=== PATIENT | female | born 1990 | race Caucasian/White ===

== ENCOUNTER 2022-07-17 10:03 | Emergency (ER) | payer BC, SELFPAY ==
[2022-07-17] VITALS (10 sets, daily range): BP systolic 114–125; BP diastolic 76–81; PULSE 102–119; RESP 18; TEMP 37.1; O2SAT 99–100; BMI 19.6
--- NOTE | 2022-07-17 10:35 | ED_ITS ---
HPI - General Adult General Chief complaint: Arrhythmia/Palpitations Stated complaint: Heart racing, nausea Time Seen by Provider: 07/17/22 10:19 History of Present Illness HPI narrative: Patient is a 31 white female has had some palpitations in the past. She was given metoprolol but decided not to take it due to its side effects potential. She has had some anxiety in the past tobacco abuse and asthma she is feeling a little bit dizzy today and lightheaded and anxious. She has had no breathing difficulty of significance she has to move her report to me no chest pain no leg swelling or edema. She works at a [employer] in [place]. She has no other specific complaints, low no leg swelling, no edema no significant headache no visual problem. She did take 1 dose of the metoprolol and felt anxious and stop that. She is here with her family Related Data Home Medications Medication Instructions Recorded Confirmed medroxyprogesterone 150 mg/mL 150 mg IM [id number] 07/01/22 07/17/22 intramuscular suspension (Depo-Provera) Previous Rx's Medication Instructions Recorded fluticasone 250 mcg-salmeterol 50 1 inh inhalation BID #60 ea 07/01/22 mcg/dose blistr powdr for inhalation (Advair Diskus) Allergies Allergy/AdvReac Type Severity Reaction Status Date / Time No Known Allergies Allergy Unknown Verified 07/17/22 10:52 Review of Systems Status of ROS: Reports: 6 or more systems reviewed and unremarkable except as noted in History and below Narrative: No exposure to toxins or chemicals PFSH PFS Surgical History History of cholecystectomy ?Z90.49 - Acquired absence of other specified parts of digestive tract (ICD- 10) Social History Smoking Status: Current every day smoker What tobacco products do you use: cigarettes Smoking packs per day: 0.5 Smoking cigarettes per day: 10.0 Do you use any of these nicotine containing products: None Second hand tobacco smoke exposure: No How often do you have a drink containing alcohol: never AUDIT-C Alcohol total score: 0 Non-prescribed substance use: denies use Exam Narrative: Exam Narrative: Objective: Patient comes in with the pulse of 119 and regular sinus rhythm on telemetry Vital signs otherwise unremarkable HEENT is unremarkable no facial asymmetry, mouth is clear well hydrated , neck is supple, chest is clear no rales or wheezing, heart rhythm regular no murmur . Abdomen benign Extremities are no edema neurologic nonfocal Good peripheral perfusion noted Const: Vital Signs, click to edit/add: Vital Signs - 24 hr 07/17/22 10:12 07/17/22 10:24 07/17/22 10:24 Temperature 98.8 F Pulse Rate 112 H 112 H Pulse Rate [Pulse Oximeter] 119 H Respiratory Rate 18 Blood Pressure 121/81 121/81 Blood Pressure [Ri ght Upper Arm] 120/77 Pulse Oximetry 100 100 100 Oxygen Delivery Me thod Non Rebreather Mas k 07/17/22 10:25 07/17/22 10:30 07/17/22 10:31 Temperature Pulse Rate 108 H 113 H 110 H Pulse Rate [Pulse Oximeter] Respiratory Rate Blood Pressure 125/76 Blood Pressure [Ri ght Upper Arm] Pulse Oximetry 100 99 100 Oxygen Delivery Me thod 07/17/22 10:45 07/17/22 11:00 07/17/22 11:01 Temperature Pulse Rate 102 H 107 H 116 H Pulse Rate [Pulse Oximeter] Respiratory Rate Blood Pressure 114/76 Blood Pressure [Ri ght Upper Arm] Pulse Oximetry 100 100 99 Oxygen Delivery Me thod 07/17/22 11:15 07/17/22 11:30 Temperature Pulse Rate 102 H 107 H Pulse Rate [Pulse Oximeter] Respiratory Rate Blood Pressure Blood Pressure [Ri ght Upper Arm] Pulse Oximetry 99 99 Oxygen Delivery Me thod Course Vital Signs Vital signs: Initial Vital Signs Temperature 98.8 F 07/17/22 10:12 Temperature Source Temporal Artery Scan 07/17/22 10:12 Pulse Rate 119 H 07/17/22 10:12 Respiratory Rate 18 07/17/22 10:12 Blood Pressure 120/77 07/17/22 10:12 Blood Pressure Mean 91 07/17/22 10:12 Blood Pressure Position Sitting 07/17/22 10:12 Pulse Oximetry 100 07/17/22 10:12 Oxygen Delivery Method Non Rebreather Mask 07/17/22 10:12 Vital Signs Temperature 98.8 F 07/17/22 10:12 Pulse Rate 119 H 07/17/22 10:12 Respiratory Rate 18 07/17/22 10:12 Blood Pressure 120/77 07/17/22 10:12 Pulse Oximetry 100 07/17/22 10:12 Oxygen Delivery Method Non Rebreather Mask 07/17/22 10:12 Temperature 98.8 F 07/17/22 10:12 Pulse Rate 107 H 07/17/22 11:30 Respiratory Rate 18 07/17/22 10:12 Blood Pressure 114/76 07/17/22 11:01 Pulse Oximetry 99 07/17/22 11:30 Oxygen Delivery Method Non Rebreather Mask 07/17/22 10:12 Medical Decision Making MDM Narrative Medical decision making narrative: Patient is a 31-year-old female with anxiety and asthma, she presents with some lightheadedness, anxiety, palpitations today. She appears to be in a sinus rhythm. This is noted on telemetry. I think would be morgan to check formal EKG, TSH, CRP, CBC D-dimer Chem profile and point of care troponin. Disposition pending findings above if these are all reassuring and negative, I think we can recommend rest light activity fluids and follow up with primary care to discuss further care in the next few days. Return to ED sooner problems or concerns. She is able to take oral fluids will give her several glasses of water to drink in case she has mildly dry. Addendum: The patient feels little better, her laboratory studies show a negative CRP negative , troponin normal , white count normal hemoglobin, negative D-dimer, ER profile is unremarkable, CRP is less than 0.5. This point I would recommend today off, follow-up with primary care in the next 2-3 days, light activity fluids, return as needed. TSH is still pending and we can follow-up that is indicated. The patient is interested in considering some antianxiety medicines that she seems to be battling this pretty regularly. She shows good insight into her situation. She would like to talk to Dr. Garcia about this I think that is excellent. Lab Data Labs: Lab Results 07/17/22 Range/Units 10:40 WBC 4.94 (4.50-11.00) K/uL RBC 5.06 (4.00-5.20) m/uL Hgb 14.5 (12.0-16.0) gm/dL Hct 42.6 (33.0-51.0) % MCV 84 (80-100) fL MCH 29 (26-34) pg MCHC 34 (32-36) gm/dL RDW Coeff of Cullen 12.6 (11.5-15.5) % Plt Count 216 (140-440) K/uL Neut % (Auto) 60.3 (42.0-72.0) % Lymph % (Auto) 30.0 (20-44) % [place] % (Auto) 7.7 (0.0-11.0) % Eos % (Auto) 1.4 (0.0-7.0) % Baso % (Auto) 0.4 (0.0-3.0) % Neut # (Auto) 2.98 (1.7-7.0) K/uL Lymph # (Auto) 1.48 (0.90-2.90) K/uL [place] # (Auto) 0.40 (0.00-0.90) K/UL Eos # (Auto) 0.07 (0.00-0.50) K/uL Baso # (Auto) 0.02 (0.00-0.30) K/uL D-Dimer Quant (PE/DVT) < 0.27 (0.00-0.50) ug/ml Sodium 138 (135-149) mmol/L Potassium 4.1 (3.6-5.1) mmol/L Chloride 109 (96-114) mmol/L Carbon Dioxide 23 (20-32) mmol/L BUN 11 (5-24) mg/dL Creatinine 0.9 (0.5-1.5) mg/dL Estimated Creat Clear 72.58 Estimated GFR 87 ml/min Glucose 108 (60-115) mg/dL Calcium 9.4 (8.4-10.6) mg/dL C-Reactive Protein < 0.5 L (0.5-1.0) mg/dL TSH 1.380 (0.270-4.20) uIU/mL POC Troponin I 0.00 L (0.01-0.04) ng/ml Discharge Plan Discharge Clinical Impression: Heart palpitations Patient Disposition: Home w/ Parent or Adult Condition: Improved Additional Instructions: Rest light activity, off work today, return to primary care in the next 2-3 days, sooner return to ED if problems or concerns Activity Level: Light activity Discharge Diet: Regular Prescriptions: No Action medroxyprogesterone [Depo-Provera] 150 mg/mL suspension 150 mg IM [id number] fluticasone propion-salmeterol [Advair Diskus] 250-50 mcg/dose blister with device 1 inh inhalation BID Qty: 60 11RF Follow Up/Referrals: Carroll Sebastian MD [Primary Care Provider] - Stand Alone Forms: [employer] Info Instructions
[2022-07-17 10:48] LABS: Basophils Absolute Auto 0.02 K/uL (0.00-0.30); Basophils Percent Auto 0.4 % (0.0-3.0); Eosinophils Absolute Auto 0.07 K/uL (0.00-0.50); Eosinophils Percent Auto 1.4 % (0.0-7.0); Hematocrit 42.6 % (33.0-51.0); Hemoglobin* 14.5 gm/dL (12.0-16.0); Immature Granulocytes Abs Auto 0.01 K/uL (0.00-0.30); Immature Granulocytes Pct Auto 0.2 %; Lymphocytes Absolute Auto 1.48 K/uL (0.90-2.90); Mean Corpuscular HGB Conc 34 gm/dL (32-36); Mean Corpuscular Hemoglobin 29 pg (26-34); Mean Corpuscular Volume 84 fL (80-100); Monocytes Percent Auto 7.7 % (0.0-11.0); Neutrophils Absolute Auto 2.98 K/uL (1.7-7.0); Neutrophils Percent Auto 60.3 % (42.0-72.0); Platelet Count* 216 K/uL (140-440); RDW Coefficient of Variation % 12.6 % (11.5-15.5); Red Blood Count 5.06 m/uL (4.00-5.20); White Blood Count* 4.94 K/uL (4.50-11.00)
[2022-07-17 10:49] LABS: Slide Review Reflex No
[2022-07-17 10:58] LABS: Chloride* 109 mmol/L (96-114); Sodium* 138 mmol/L (135-149)
[2022-07-17 10:59] LABS: Potassium* 4.1 mmol/L (3.6-5.1)
[2022-07-17] MEDS: LORazepam 1 MG TABLET PO (10:59)
[2022-07-17 11:01] LABS: Creatinine* 0.9 mg/dL (0.5-1.5); Est. Creatinine Clearance* 72.58; Estimated Glomerular Filt Rate 87 ml/min
[2022-07-17 11:02] LABS: Blood Urea Nitrogen* 11 mg/dL (5-24); Calcium* 9.4 mg/dL (8.4-10.6); Carbon Dioxide* 23 mmol/L (20-32); Glucose* 108 mg/dL (60-115)
[2022-07-17 11:05] LABS: D Dimer Quantitative* < 0.27 ug/ml (0.00-0.50)
[2022-07-17 11:06] LABS: C Reactive Protein* < 0.5 mg/dL (0.5-1.0)
== END 2022-07-17 11:35 | disposition home or self-care (01) ==
LOC: ED 11:18
PROVIDERS: Emergency Provider Family Medicine; PCP Family Medicine
DX: R00.2 Palpitations (principal)
CPT/HCPCS: 36415; 80048; 84443; 84484; 85025; 85379; 86140; 93005; 99284; A9270

== ENCOUNTER 2024-11-03 23:18 | Emergency (ER) | payer OTHER, SELFPAY ==
[2024-11-03 23:22] VITALS: BP 133/80; PULSE 95; RESP 18; TEMP 36.7; O2SAT 99; BMI 22.3
--- NOTE | 2024-11-04 00:22 | ED.GENADULT ---
HPI - General Adult General Chief complaint: Animal Bite Stated complaint: cat bite Time Seen by Provider: 11/04/24 00:01 Source: patient Mode of arrival: ambulatory Limitations: no limitations History of Present Illness HPI narrative: 34-year-old female presents the emergency department 7 hours after she was bit by her mother's cat on her right hand. The cat has been vaccinated in the past been may not be fully up-to-date. Does not have any observable obvious signs of rabies. The CT does seem to be an indoor/outdoor cat as she reports that it has been exposed to fleas and she was working to remove those. The cat bit her while she was attempting to care for it, main impact to her right hand along the MCP 2nd joint/thenar eminence area. She has been noticing increased swelling and tenderness for the past couple of hours. Did try taking some ibuprofen which did help a little bit. No fevers. She does not appreciate any redness but I do on exam. No prior history of surgery to this area. She is not immunocompromised, does use tobacco but does not have diabetes. She did wash out the wound very well after the bite. No history of antibiotic allergies are antibiotic resistant infections. She states that otherwise long-term health is good. Home medications are sertraline and Depo-Provera. She does have intermittent asthma which she will use Advair for as well. ROS is notable for the hand symptoms only, otherwise denies other skin, musculoskeletal, hematological, generalized concerns. Related Data Home Medications ?Medication ?Instructions ?Recorded ?Confirmed medroxyprogesterone 150 mg/mL 150 mg IM [id number] 07/01/22 11/03/24 intramuscular suspension (Depo-Provera) sertraline 50 mg tablet 50 mg PO DAILY 11/03/24 11/03/24 Previous Rx's ?Medication ?Instructions ?Recorded fluticasone 250 mcg-salmeterol 50 1 inh inhalation BID #60 ea 08/13/23 mcg/dose blistr powdr for inhalation (Advair Diskus) amoxicillin 875 mg-potassium 1 tab PO BID #19 tabs 11/04/24 clavulanate 125 mg tablet Allergies Allergy/AdvReac Type Severity Reaction Status Date / Time No Known Allergies Allergy Unknown Verified 11/03/24 23:24 PFSH PFS Surgical History History of cholecystectomy ?Z90.49 - Acquired absence of other specified parts of digestive tract (ICD-10) Social History Smoking Status: Current every day smoker What tobacco products do you use: cigarettes Smoking packs per day: 0.5 Smoking cigarettes per day: 10.0 Do you use any of these nicotine containing products: None Second hand tobacco smoke exposure: Yes How often do you have a drink containing alcohol: never AUDIT-C Alcohol total score: 0 Non-prescribed substance use: denies use Exam Const: Vital Signs, click to edit/add: Vital Signs - 24 hr 11/03/24 23:22 Temperature 98.0 F Pulse Rate [Right Pulse Oximeter] 95 Respiratory Rate 18 Blood Pressure [Ri ght Upper Arm] 133/80 Pulse Oximetry 99 Oxygen Delivery Me thod Room Air Documenting provider has reviewed patient's vital signs: yes Common normals: no apparent distress General appearance: cooperative and well kempt HENMT: Common normals: normocephalic Head and scalp: normocephalic Face and sinus: normal facial exam Eye: General eye: normal appearance of both eyes Neck & C-Spine: General: normal visual inspection Resp: Common normals: normal respiratory effort and clear to auscultation bilaterally Effort & inspection: able to speak in complete sentences Auscultation: clear to auscultation bilaterally Cardio: Common normals: regular rate, regular rhythm, S1 normal heart sound, S2 normal heart sound and no murmurs Rate: regular rate Rhythm: regular rhythm Heart sounds: S1 normal and S2 normal Other: Normal radial pulses bilaterally, normal capillary refill of all fingers Extremity: Other: Right hand and wrist have normal range of motion. Area in question is 2nd MCP joint area, slightly proximal for there is a moderate amount of swelling and 2 very small puncture points, nonbleeding that are consistent with her reported injury. There is a mild redness on the palmar aspect. She has normal tendon and nerve function in all fingers of the right hand. Normal capillary refill and sensation. Opposite left hand appears grossly normal. Psych: Appearance: well kempt Attitude: engaged Activity/motor behavior: appropriate eye contact Insight: insight good Judgement: judgment good Skin: Narrative: No other areas of injury besides right hand. Course Course ED Course: 34-year-old female with cat bite 7 hours ago showing signs of swelling. CT can be observed for any signs symptoms of rabies which does not seem to be exhibiting. I do not recommend that she start the rabies vaccine series. Tdap is out of date, recommend that we update her tetanus shot today, she was agreeable to this. We spent most for time discussing the injury to the hand. I am noticing signs of induration and swelling which are concerning for early infection. Counseled patient that unfortunately these infections can be quite serious and can be difficult to treat. Will start Augmentin 875 mg p.o. b.i.d. times 10 days, 1st dose right away here in the emergency room. Counseled patient that she needs to watch this closely, she will take pictures of the injury on her phone for comparison. Things may continue to worsen and swell for the next few hours after starting antibiotics but there should be the start of some improvement by the 24 hour esperanza. If after 24 hours we are not starting to notice any improvement, I would recommend re-evaluation in the emergency room, as we should consider IV antibiotics and hospital admission. She does smoke but that would be her only real risk factor for complication. She verbalized understanding and agreement. Prescription sent to her pharmacy. Counseled on use of Tylenol and ibuprofen as needed for mild discomfort Vital Signs Vital signs: Initial Vital Signs Temperature 98.0 F 11/03/24 23:22 Temperature Source Temporal Artery Scan 11/03/24 23:22 Pulse Rate 95 11/03/24 23:22 Respiratory Rate 18 11/03/24 23:22 Blood Pressure 133/80 11/03/24 23:22 Blood Pressure Mean 97 11/03/24 23:22 Blood Pressure Position Sitting 11/03/24 23:22 Pulse Oximetry 99 11/03/24 23:22 Oxygen Delivery Method Room Air 11/03/24 23:22 Vital Signs Temperature 98.0 F 11/03/24 23:22 Pulse Rate 95 11/03/24 23:22 Respiratory Rate 18 11/03/24 23:22 Blood Pressure 133/80 11/03/24 23:22 Pulse Oximetry 99 11/03/24 23:22 Oxygen Delivery Method Room Air 11/03/24 23:22 Temperature 98.0 F 11/03/24 23:22 Pulse Rate 95 11/03/24 23:22 Respiratory Rate 18 11/03/24 23:22 Blood Pressure 133/80 11/03/24 23:22 Pulse Oximetry 99 11/03/24 23:22 Oxygen Delivery Method Room Air 11/03/24 23:22 Discharge Plan Discharge Clinical Impression: Cat bite Patient Disposition: Home, Self-Care Instructions: Animal Bite (ED) Additional Instructions: As we discussed, you are overdue for your tetanus shot, we have updated this today in you would need a repeat vaccine in 10 years. Because this is a CT that can be observed for any signs of rabies, we do not recommend that you start the rabies vaccine series even though the animal may not be completely vaccinated. I am much more concerned about the fact that you are showing signs of infection which unfortunately are quite common with cat bites to the hand and can be very serious. Take pictures of the amount of swelling and redness that you have right now so that this can be used for comparison. Has started on an antibiotic, Augmentin. You received your 1st dose here in the emergency room. Do will be due for another dose at about 12:30 p.m.. After that, you can move her 3rd dose to a more reasonable morning start time, continuing on twice daily for a total of 10 days. Remember that as we discussed this can cause some loose stools and diarrhea, it would be okay to use Imodium to counteract this. Vaginal itching and tenderness can be common. Use [id number] Monistat if this occurs. Most importantly, if you are noticing worsening 24 hours after starting antibiotics, would recommend re-evaluation in the emergency room has unfortunately, sometimes antibiotics by mouth are not enough and people have to be admitted for IV antibiotics or surgical treatment. It is okay to use Tylenol 1000 mg every 6 hours and or ibuprofen 600 mg every 6 hours as needed for discomfort. Gentle sleep aids like Benadryl or melatonin are also welcome. Activity Level: No Restrictions Discharge Diet: Regular Prescriptions: New amoxicillin-pot clavulanate 875-125 mg tablet 1 tab PO BID Qty: 19 0RF No Action medroxyprogesterone [Depo-Provera] 150 mg/mL suspension 150 mg IM [id number] sertraline 50 mg tablet 50 mg PO DAILY fluticasone propion-salmeterol [Advair Diskus] 250-50 mcg/dose blister with device 1 inh inhalation BID Qty: 60 2RF Follow Up/Referrals: Carroll Sebastian MD [Primary Care Provider, Family Practice] Stand Alone Forms: [employer] Info Instructions
[2024-11-04] MEDS: TETANUS-DIPHTHERIA TOXOIDS/PF 0.5 ML SYRINGE IM (00:27)
[2024-11-04 00:31] VITALS: BP 125/74; PULSE 84; RESP 18; TEMP 36.7; O2SAT 99
[2024-11-04 00:32] VITALS: BP 125/74; PULSE 84; RESP 18; TEMP 36.7
== END 2024-11-04 00:32 | disposition home or self-care (01) ==
LOC: ED 11-04 00:24
PROVIDERS: Emergency Provider Family Medicine; PCP Family Medicine
DX: S61.451A Open bite of right hand, initial encounter (principal); W55.01XA Bitten by cat, initial encounter; Z23 Encounter for immunization
CPT/HCPCS: 90471; 90714; 99283; 99284; A9270